=== PATIENT | female | born 1980 | race Caucasian/White ===

== ENCOUNTER 2016-09-09 19:43 | Emergency (ER) | payer SELFPAY ==
[2016-09-09 19:56] VITALS: BP 127/62
[2016-09-09] MEDS ORDERED: Ondansetron INJ* 2 MG/ML VIAL IV ONE (21:33)
[2016-09-09] MEDS ORDERED: NS 0.9% 1000 ML* 1,000 ML IV ONE (21:33)
[2016-09-09 22:00] LABS: Hematocrit 45 % (35-47); Hemoglobin 14.9 g/dl (12.0-16.0); Mean Corpuscular HGB Conc 34 g/dl (31-36); Mean Corpuscular Hemoglobin 32 pg (27-31); Mean Corpuscular Volume 95 fL (80-97); Mean Platelet Volume 7 um3 (7.4-10.4); Red Blood Count 4.72 10^6/ul (4.0-5.4); Red Cell Distribution Width 13 % (10.5-15); White Blood Count 10.3 10^3/ul (3.5-10.8)
--- NOTE | 2016-09-09 22:07 | ED ---
Mike Maldonado Billy, scribed for Stevie Patel MD on 09/09/16 at 2137 . Abdominal Pain/Female - HPI Summary HPI Summary: Patient is a 35 y/o female coming to [facility] for evaluation of 4 days of constipation. She states she has taken laxatives without relief. She also reports nausea, vomiting, decreased appetite, and lower abdominal pain. Pain severity 8/10. Fever TMax 101F. She also reports lower back pain. She denies any prior episodes of constipation. - History of Current Complaint Chief Complaint: EDAbdPain Stated Complaint: FEVER/VOMITING Time Seen by Provider: 09/09/16 21:29 Hx Obtained From: Patient Hx Last Menstrual Period: 12/15/15 Onset/Duration: Gradual Onset, Lasting Days, Still Present Timing: Constant Severity Initially: Moderate Severity Currently: Moderate Pain Intensity: 8 Pain Scale Used: 0-10 Numeric Location: Discrete At: RLQ, Discrete At: LLQ Radiates: No Aggravating Factor(s): Nothing Alleviating Factor(s): Nothing Associated Signs and Symptoms: Positive: Fever, Back Pain, Constipation, Nausea , Vomiting, Other: - decreased appetite Allergies/Adverse Reactions: Allergies Allergy/AdvReac Type Severity Reaction Status Date / Time No Known Allergies Allergy Verified 09/09/16 19:53 PMH/Surg Hx/FS Hx/Imm Hx Endocrine/Hematology History: Reports: Hx Anticoagulant Therapy Denies: Hx Diabetes, Hx Thyroid Disease Cardiovascular History: Denies: Hx Congestive Heart Failure, Hx Deep Vein Thrombosis, Hx Hypertension , Hx Myocardial Infarction, Hx Pacemaker/ICD Respiratory History: Denies: Hx Asthma, Hx Chronic Obstructive Pulmonary Disease (COPD), Hx Lung Cancer, Hx Pneumonia, Hx Pulmonary Embolism GI History: Denies: Hx Gall Bladder Disease, Hx Gastrointestinal Bleed, Hx Ulcer, Hx Urosepsis History: Denies: Hx Kidney Stones, Hx Renal Disease Neurological History: Reports: Hx Migraine - Her treatment is mostly "sleep." Denies: Hx Dementia, Hx Seizures, Hx Transient Ischemic Attacks (TIA) Psychiatric History: Reports: Hx Anxiety, Hx Depression - By her report, but is on no medications. Denies: Hx Schizophrenia, Hx Bipolar Disorder - Surgical History Surgery Procedure, Year, and Place: hiatil hernia 2011. fibro duct gland removed from throat 2006 Infectious Disease History: No Infectious Disease History: Denies: Traveled Outside the [place] in Last 30 Days - Family History Known Family History: Positive: Cardiac Disease, Hypertension - Social History Alcohol Use: Rare Substance Use Type: Reports: None Smoking Status (MU): Never Smoked Tobacco Amount Used/How Often: 1/2 ppd. Review of Systems Positive: Fever Positive: Abdominal Pain, Vomiting, Nausea, Other - constipation, decreased appetite Positive: Other - lower back pain All Other Systems Reviewed And Are Negative: Yes Physical Exam Triage Information Reviewed: Yes Vital Signs On Initial Exam: Initial Vitals Temp Pulse Resp BP Pulse Ox 97.6 F 66 18 127/62 98 09/09/16 19:52 09/09/16 19:52 09/09/16 19:52 09/09/16 19:52 09/09/16 19:52 Vital Signs Reviewed: Yes Appearance: Positive: Well-Appearing, No Pain Distress Skin: Positive: Warm Head/Face: Positive: Normal Head/Face Inspection Eyes: Positive: MARTINA ENT: Positive: Hearing grossly normal Neck: Positive: Supple Respiratory/Lung Sounds: Positive: Clear to Auscultation, Breath Sounds Present Cardiovascular: Positive: RRR Abdomen Description: Positive: Nontender, No Organomegaly, Soft Bowel Sounds: Positive: Present Musculoskeletal: Positive: Strength/ROM Intact Neurological: Positive: Alert, Oriented to Person Place, Time Psychiatric: Positive: Affect/Mood Appropriate Diagnostics - Vital Signs Vital Signs Temp Pulse Resp BP Pulse Ox 09/09/16 19:52 97.6 F 66 18 127/62 98 - Laboratory Lab Results: Lab Results 09/09/16 Range/Units 21:54 WBC 10.3 (3.5-10.8) 10^3/ul RBC 4.72 (4.0-5.4) 10^6/ul Hgb 14.9 (12.0-16.0) g/dl Hct 45 (35-47) % MCV 95 (80-97) fL MCH 32 H (27-31) pg MCHC 34 (31-36) g/dl RDW 13 (10.5-15) % Plt Count 236 (150-450) 10^3/ul MPV 7 L (7.4-10.4) um3 Neut % (Auto) 58.3 (38-83) % Lymph % (Auto) 31.4 (25-47) % [place] % (Auto) 7.3 (1-9) % Eos % (Auto) 2.6 (0-6) % Baso % (Auto) 0.4 (0-2) % Absolute Neuts (auto) 6.0 (1.5-7.7) 10^3/ul Absolute Lymphs (auto) 3.2 (1.0-4.8) 10^3/ul Absolute Monos (auto) 0.7 (0-0.8) 10^3/ul Absolute Eos (auto) 0.3 (0-0.6) 10^3/ul Absolute Basos (auto) 0 (0-0.2) 10^3/ul Absolute Nucleated RBC 0.01 10^3/ul Nucleated RBC % 0.1 Result Diagrams: 09/09/16 21:54 09/09/16 21:54 Lab Statement: Any lab studies that have been ordered have been reviewed, and results considered in the medical decision making process. - Radiology abd xray Radiology Interpretation Completed By: Radiologist - Moderate stool in the colon. No evidence for bowel obstruction. Re-Evaluation - Re-Evaluation First Eval Change: Improved Abdominal Pain Fem Course/Dx - Diagnoses Provider Diagnoses: Constipation Discharge - Discharge Plan Condition: Stable Disposition: HOME Patient Education Materials: Constipation (ED) Referrals: Sebastien Alonso MD [Primary Care Provider] - The documentation as recorded by the Mike lozada Billy accurately reflects the service I personally performed and the decisions made by , Stevie Patel MD.
[2016-09-09 22:16] LABS: ALT 12 U/L (7-52); AST 13 U/L (13-39); Albumin 4.1 g/dL (3.2-5.2); Alkaline Phosphatase 43 U/L (34-104); Anion Gap 6 mmol/L (2-11); BUN/Creatinine Ratio 14.1 (8-20); Blood Urea Nitrogen 10 mg/dL (6-24); CO2 Carbon Dioxide 26 mmol/L (22-32); Calcium 9.2 mg/dL (8.6-10.3); Chloride 105 mmol/L (101-111); EGFR African American 119.1 (>60); EGFR Non-African American 92.6 (>60); Globulin 2.9 g/dL (2-4); Glucose 95 mg/dL (70-100); Lipase 13 U/L (11.0-82.0); Magnesium 1.9 mg/dL (1.9-2.7); Potassium 3.6 mmol/L (3.5-5.0); Sodium 137 mmol/L (133-145)
--- NOTE | 2016-09-09 22:48 | RAD ---
Indication: No bowel movement for 4 days. Abdominal and back pain. Comparison: None. Technique: Supine abdomen. Report: Moderate stool throughout the colon with the largest volume at the RIGHT colon. Negative for visualized rectal distention with stool. No dilated small bowel loops evident. No suspicious calcifications or mass effect. Contraceptive coils noted at the pelvis. Unremarkable soft tissue contours accounting for body habitus. IMPRESSION: Moderate stool in the colon. No evidence for bowel obstruction.
[2016-09-09] MEDS ORDERED: Magnesium CITRATE* 300 ML BTL PO ONE (23:04)
== END 2016-09-09 23:37 | disposition home or self-care (01) ==
LOC: ED 19:43
DX: K59.00 Constipation, unspecified (principal); M54.5 Low back pain; R50.9 Fever, unspecified; R11.2 Nausea with vomiting, unspecified; R10.84 Generalized abdominal pain
CPT/HCPCS: 36415; 74000; 80053; 83690; 83735; 84702; 85025; 96374; 99282; A9270-GY; J2405

== ENCOUNTER 2017-10-10 11:06 | Emergency (ER) | payer SELFPAY ==
[2017-10-10 11:38] LABS: ABS Basophils 0.1 10^3/ul (0-0.2); ABS Eosinophils 0.1 10^3/ul (0-0.6); ABS Lymphocytes 1.9 10^3/ul (1.0-4.8); ABS Monocytes 0.6 10^3/ul (0-0.8); ABS Neutrophils 5.9 10^3/ul (1.5-7.7); ABS Nucleated RBC 0 10^3/ul; Eosinophil % 0.7 % (0-6); Hematocrit 43 % (35-47); Hemoglobin 14.8 g/dl (12.0-16.0); Lymphocyte % 22.1 % (25-47); Mean Corpuscular HGB Conc 34 g/dl (31-36); Mean Corpuscular Hemoglobin 32 pg (27-31); Mean Corpuscular Volume 95 fL (80-97); Mean Platelet Volume 7.2 um3 (7.4-10.4); Nucleated Red Blood Cells % 0; Platelet Count 253 10^3/ul (150-450); Red Blood Count 4.59 10^6/ul (4.0-5.4); Red Cell Distribution Width 13 % (10.5-15); White Blood Count 8.4 10^3/ul (3.5-10.8)
[2017-10-10 11:53] LABS: EGFR Non-African American 86.5 (>60)
[2017-10-10] MEDS ORDERED: Nitroglycerin TAB 0.4 MG* 0.4 MG TAB SL ONE (12:00)
[2017-10-10] MEDS ORDERED: Aspirin TAB* 325 MG PO ONE (12:00)
--- NOTE | 2017-10-10 12:14 | RAD ---
INDICATION: Chest pain with radiation down the left arm COMPARISON: Chest x-ray dated January 01, 2016 TECHNIQUE: Single AP portable view of the chest was obtained. FINDINGS: Image quality is compromised due to the relative inferiority of a portable chest x-ray. The heart and mediastinum exhibit normal size and contour. The lungs are grossly clear. There is no evidence of a large pleural effusion. Visualized bones are normal for the patient's age. IMPRESSION: No radiographic evidence for acute cardiopulmonary abnormality on this portable chest x-ray.
[2017-10-10] MEDS ORDERED: Aspirin 81 mg CHEW TAB* 81 MG TAB.CHEW ONE (12:36)
[2017-10-10] MEDS ORDERED: Aspirin 81 mg CHEW TAB* 81 MG TAB.CHEW PO ONE (12:39)
[2017-10-10] MEDS ORDERED: Acetaminophen TAB* 325 MG PO ONE (13:49)
[2017-10-10] MEDS ORDERED: Acetaminophen TAB* 325 MG ONE (13:50)
[2017-10-10 16:17] VITALS: BP 108/73
--- NOTE | 2017-10-12 13:49 | ED ---
I, Alaina Ford, scribed for Aniket Casey MD on 10/10/17 at 1423 . Progress - EKG/XRAY/CT EKG: rhythm - Taken at 16:05, 61 BPM, ventricular premature complex, No-STEMI, PVC Re-Evaluation - Re-Evaluation First Eval Re-Evaluation Time: 16:11 Change: Unchanged - ED physician discussed results with the pt and her . Course/Dx - Course Course Of Treatment: At 15:36, ED physician spoke to Dr. Aleisha Wade at [facility]. They state the pt can follow up with them within the next week. They ordered cardiology follow-up that has not happened yet. Office staff will follow up on this. No HI. ED physician facilitated close follow-up care. ED physician suggests for the pt to call PCP tomorrow morning for appointment tomorrow. - Diagnoses Provider Diagnoses: Chest pain, unspecified Discharge - Sign-Out/Discharge Documenting (check all that apply): Discharge/Admit/Transfer - discharge - Discharge Plan Condition: Stable Disposition: HOME Patient Education Materials: Chest Pain (ED) Referrals: Sebastien Alonso MD [Primary Care Provider] - 1 Week Additional Instructions: RETURN TO THE EMERGENCY DEPARTMENT FOR CHANGING OR WORSENING SYMPTOMS. The documentation as recorded by the Logan lozada Stephanie accurately reflects the service I personally performed and the decisions made by , Aniket Casey MD.
--- NOTE | 2017-10-12 13:50 | ED ---
Damari Maldonado Julia, scribed for Aniket Casey MD on 10/10/17 at 1153 . HPI Chest Pain - HPI Summary HPI Summary: This patient is a 36 year old F presenting to [facility] with a chief complaint of constant sudden onset left anterior chest pain that radiates to the left arm since last night while working. Patient reports SOB, nausea, and headache. The patient rates the pain 4/10 in severity. CP aggravated by deep breaths. Patient has had similar symptoms before that have not lasted as long. She reports a treadmill stress test in [place] in January of 2017. She states her PCP at [facility] recommended a nuclear stress test but she has not heard anything from them about when they would like to schedule. PMHx of HTN. SHx of smoking. FMHx of [place] in father, first at age 36; four in total. Pt takes 81mg of ASA daily. She has not taken any today since she takes it in the evening. - History of Current Complaint Chief Complaint: EDChestPainROMI Time Seen by Provider: 10/10/17 11:16 Hx Obtained From: Patient Hx Last Menstrual Period: 12/15/15 Onset/Duration: Started Hours Ago Timing: Constant Pain Intensity: 4 Pain Scale Used: 0-10 Numeric Chest Pain Location: Left Anterior Chest Pain Radiates: Yes Chest Pain Radiates To:: Arm - left Aggravating Factor(s): Deep Breaths Alleviating Factor(s): Nothing Associated Signs and Symptoms: Positive: Chest Pain, Headaches, Shortness of Breath Related History: Similar Episode/Dx as: - chest pain - Allergy/Home Medications Allergies/Adverse Reactions: Allergies Allergy/AdvReac Type Severity Reaction Status Date / Time No Known Allergies Allergy Verified 10/10/17 11:15 Home Medications: Home Medications Aspirin EC TAB* [Ecotrin EC Low Dose 81 MG*] 81 mg PO DAILY 10/10/17 [History Confirmed 10/10/17] Metoprolol Tartrate TAB* [Lopressor TAB*] 12.5 mg PO BID 10/10/17 [History Confirmed 10/10/17] PMH/Surg Hx/FS Hx/Imm Hx Endocrine/Hematology History: Reports: Hx Anticoagulant Therapy Denies: Hx Diabetes, Hx Thyroid Disease Cardiovascular History: Reports: Hx Hypertension Denies: Hx Congestive Heart Failure, Hx Deep Vein Thrombosis, Hx Myocardial Infarction, Hx Pacemaker/ICD Respiratory History: Denies: Hx Asthma, Hx Chronic Obstructive Pulmonary Disease (COPD), Hx Lung Cancer, Hx Pneumonia, Hx Pulmonary Embolism GI History: Denies: Hx Gall Bladder Disease, Hx Gastrointestinal Bleed, Hx Ulcer, Hx Urosepsis History: Denies: Hx Kidney Stones, Hx Renal Disease Neurological History: Reports: Hx Migraine - Her treatment is mostly "sleep." Denies: Hx Dementia, Hx Seizures, Hx Transient Ischemic Attacks (TIA) Psychiatric History: Reports: Hx Anxiety, Hx Depression - By her report, but is on no medications. Denies: Hx Schizophrenia, Hx Bipolar Disorder - Surgical History Surgery Procedure, Year, and Place: hiatil hernia 2011. fibro duct gland removed from throat 2006 Infectious Disease History: No Infectious Disease History: Denies: Traveled Outside the [place] in Last 30 Days - Family History Known Family History: Positive: Cardiac Disease - father [place] age 38, Hypertension - Social History Occupation: Employed Full-time - less stressful than previous occupation Alcohol Use: Rare Substance Use Type: Reports: None Smoking Status (MU): Current Every Day Smoker Amount Used/How Often: 1/2 ppd. Review of Systems Negative: Fever, Chills Negative: Erythema Negative: Sore Throat Positive: Chest Pain Positive: Shortness Of Breath. Negative: Cough Positive: Nausea. Negative: Abdominal Pain, Vomiting Negative: dysuria, hematuria Negative: Myalgia, Edema Negative: Rash Neurological: Negative - dizzy Positive: Headache All Other Systems Reviewed And Are Negative: Yes Physical Exam - Summary Physical Exam Summary: Constitutional: Well-developed, Well-nourished, Alert. (-) Distressed Skin: Warm, Dry HENT: Normocephalic; Atraumatic Eyes: Conjunctiva normal Neck: Musculoskeletal ROM normal neck. (-) JVD, (-) Stridor, (-) Tracheal deviation Cardio: Rhythm regular, rate normal, Heart sounds normal; Intact distal pulses; The pedal pulses are 2+ and symmetric. Radial pulses are 2+ and symmetric. (-) Murmur Pulmonary/Chest wall: Effort normal. (-) Respiratory distress, (-) Wheezes, (-) Rales Abd: Soft, (-) Tenderness, (-) Distension, (-) Guarding, (-) Rebound Musculoskeletal: (-) Edema Lymph: (-) Cervical adenopathy Neuro: Alert, Oriented x3 Psych: Mood and affect Normal Triage Information Reviewed: Yes Vital Signs On Initial Exam: Initial Vitals Temp Pulse Resp BP Pulse Ox 99.1 F 104 18 123/65 100 10/10/17 11:21 10/10/17 11:21 10/10/17 11:21 10/10/17 11:21 10/10/17 11:21 Vital Signs Reviewed: Yes Diagnostics - Vital Signs Vital Signs Temp Pulse Resp BP Pulse Ox 10/10/17 11:21 99.1 F 104 18 123/65 100 - Laboratory Lab Results: Lab Results 10/10/17 10/10/17 10/10/17 Range/Units 11:19 11:19 11:19 WBC 8.4 (3.5-10.8) 10^3/ul RBC 4.59 (4.0-5.4) 10^6/ul Hgb 14.8 (12.0-16.0) g/dl Hct 43 (35-47) % MCV 95 (80-97) fL MCH 32 H (27-31) pg MCHC 34 (31-36) g/dl RDW 13 (10.5-15) % Plt Count 253 (150-450) 10^3/ul MPV 7.2 L (7.4-10.4) um3 Neut % (Auto) 69.9 (38-83) % Lymph % (Auto) 22.1 L (25-47) % [place] % (Auto) 6.7 (0-7) % Eos % (Auto) 0.7 (0-6) % Baso % (Auto) 0.6 (0-2) % Absolute Neuts (auto) 5.9 (1.5-7.7) 10^3/ul Absolute Lymphs (auto) 1.9 (1.0-4.8) 10^3/ul Absolute Monos (auto) 0.6 (0-0.8) 10^3/ul Absolute Eos (auto) 0.1 (0-0.6) 10^3/ul Absolute Basos (auto) 0.1 (0-0.2) 10^3/ul Absolute Nucleated RBC 0 10^3/ul Nucleated RBC % 0 Sodium 138 L (139-145) mmol/L Potassium 3.7 (3.5-5.0) mmol/L Chloride 105 (101-111) mmol/L Carbon Dioxide 26 (22-32) mmol/L Anion Gap 7 (2-11) mmol/L BUN 8 (6-24) mg/dL Creatinine 0.75 (0.51-0.95) mg/dL Est GFR ( Amer) 111.2 (>60) Est GFR (Non-Af Amer) 86.5 (>60) BUN/Creatinine Ratio 10.7 (8-20) Glucose 125 H (70-100) mg/dL Lactic Acid 1.1 (0.5-2.0) mmol/L Calcium 9.2 (8.6-10.3) mg/dL Total Bilirubin 0.50 (0.2-1.0) mg/dL AST 13 (13-39) U/L ALT 9 (7-52) U/L Alkaline Phosphatase 39 (34-104) U/L Troponin I Pending Total Protein 7.1 (6.4-8.9) g/dL Albumin 4.2 (3.2-5.2) g/dL Globulin 2.9 (2-4) g/dL Albumin/Globulin Ratio 1.4 (1-3) Result Diagrams: 10/10/17 11:19 10/10/17 11:19 Lab Statement: Any lab studies that have been ordered have been reviewed, and results considered in the medical decision making process. - Radiology CXR Radiology Interpretation Completed By: Radiologist - No radiographic evidence for acute cardiopulmonary abnormality on this portable chest x-ray. ED Physician has reviewed this report. - EKG 1103 Cardiac Rate: NL - at 99 BPM EKG Rhythm: Sinus Rhythm EKG Interpretation: no STEMI Re-Evaluation - Re-Evaluation 1 Re-Evaluation Time: 13:55 Change: Improved - CP is resolved with Nitro First Eval Re-Evaluation Time: 16:11 Change: Unchanged - ED physician discussed results with the pt and her . Chest Pain Course/Dx - Diagnoses Provider Diagnoses: Chest pain, unspecified Discharge - Sign-Out/Discharge Documenting (check all that apply): Discharge/Admit/Transfer - Discharge Plan Condition: Stable Disposition: HOME Patient Education Materials: Chest Pain (ED) Referrals: Sebastien Alonso MD [Primary Care Provider] - 1 Day Additional Instructions: RETURN TO THE EMERGENCY DEPARTMENT FOR CHANGING OR WORSENING SYMPTOMS. - Billing Disposition and Condition Condition: STABLE Disposition: HOME The documentation as recorded by the Damari lozada Julia accurately reflects the service I personally performed and the decisions made by me, Ainket Casey MD.
== END 2017-10-10 16:36 | disposition home or self-care (01) ==
LOC: ED 11:06
DX: R07.9 Chest pain, unspecified (principal)
CPT/HCPCS: 36415; 71045; 80053; 83605; 84484; 85025; 93005; 99283; A9270-GY

== ENCOUNTER 2018-01-09 15:03 | Emergency (ER) | payer OTHER ==
[2018-01-09 15:12] VITALS: BP 124/72
== END 2018-01-09 18:16 | disposition left against medical advice (07) ==
LOC: ED 15:03
DX: R42 Dizziness and giddiness (principal); Z53.21 Procedure and treatment not carried out due to patient leaving prior to being seen by health care provider

== ENCOUNTER 2018-01-10 07:19 | Emergency (ER) | payer OTHER ==
--- NOTE | 2018-01-10 07:43 | ED ---
Headache - HPI Summary HPI Summary: This is Usha lozada, documenting for attending, Aniket Casey MD. This patient is a 37 year old F presenting to [facility] with a chief complaint of parietal headache with nausea, dizziness, and vomiting for the past three months , worsening the past three days. She states the headache has been constant for the past three days. Headache is 6/10 in severity. Headache aggravated by bright lights. Symptoms unchanged by Ibuprofen. She has no formal diagnosis of migraines, but states she has had migraines since a child. LNMP began three days ago and has ended today. Denies sinus pain/congestion, chest pain, and SOB. She states she has had work-ups done with her primary care physician, who sent her to a turn supervisor, Dr. Hou, who sent her here for a Brain CT. She is currently taking medications for nausea and heart burn, as prescribed by Dr. Hou. Denies over the counter medication use. - History Of Current Complaint Chief Complaint: EDHeadache Stated Complaint: DIZZINESS/NAUSEA Hx Obtained From: Patient Hx Last Menstrual Period: 12/15/15 Onset/Duration: Started weeks ago, Worse Since - past three days Currently Pain Is: Current Pain Scale(0-10)= - 6 Timing: Constant Location of Headache: Parietal Aggravating Factor: Bright Lights Allevating Factors: Nothing Associated Signs And Symptoms: Dizziness, Nausea, Vomiting - Allergies/Home Medications Allergies/Adverse Reactions: Allergies Allergy/AdvReac Type Severity Reaction Status Date / Time No Known Allergies Allergy Verified 01/10/18 07:28 PMH/Surg Hx/FS Hx/Imm Hx Endocrine/Hematology History: Reports: Hx Anticoagulant Therapy Denies: Hx Diabetes, Hx Thyroid Disease Cardiovascular History: Reports: Hx Hypertension Denies: Hx Congestive Heart Failure, Hx Deep Vein Thrombosis, Hx Myocardial Infarction, Hx Pacemaker/ICD Respiratory History: Denies: Hx Asthma, Hx Chronic Obstructive Pulmonary Disease (COPD), Hx Lung Cancer, Hx Pneumonia, Hx Pulmonary Embolism GI History: Denies: Hx Gall Bladder Disease, Hx Gastrointestinal Bleed, Hx Ulcer, Hx Urosepsis History: Denies: Hx Kidney Stones, Hx Renal Disease Neurological History: Reports: Hx Migraine - Her treatment is mostly "sleep." Not formally diagnosed. Denies: Hx Dementia, Hx Seizures, Hx Transient Ischemic Attacks (TIA) Psychiatric History: Reports: Hx Anxiety, Hx Depression - By her report, but is on no medications. Denies: Hx Schizophrenia, Hx Bipolar Disorder - Surgical History Surgery Procedure, Year, and Place: hiatil hernia 2011. fibro duct gland removed from throat 2006 Infectious Disease History: No Infectious Disease History: Denies: Traveled Outside the [place] in Last 30 Days - Family History Known Family History: Positive: Cardiac Disease - father [place] age 38, Hypertension - Social History Alcohol Use: Rare Substance Use Type: Reports: None Smoking Status (MU): Current Every Day Smoker Amount Used/How Often: 1/2 ppd. Review of Systems Negative: Fever, Chills Positive: Photophobia. Negative: Erythema ENT: Negative - sinus pain/congestion Negative: Sore Throat Negative: Chest Pain Negative: Shortness Of Breath, Cough Positive: Vomiting, Nausea. Negative: Abdominal Pain Negative: dysuria, hematuria Negative: Myalgia, Edema Neurological: Other - dizziness Positive: Headache All Other Systems Reviewed And Are Negative: Yes Physical Exam - Summary Physical Exam Summary: Constitutional: Well-developed, Well-nourished, Alert. (-) Distressed Skin: Warm, Dry HENT: Normocephalic; Atraumatic Eyes: Conjunctiva normal Neck: Musculoskeletal ROM normal neck. (-) JVD, (-) Stridor, (-) Tracheal deviation Cardio: Rhythm regular, rate normal, Heart sounds normal; Intact distal pulses; The pedal pulses are 2+ and symmetric. Radial pulses are 2+ and symmetric. (-) Murmur Pulmonary/Chest wall: Effort normal. (-) Respiratory distress, (-) Wheezes, (-) Rales Abd: Soft. (-) Tenderness, (-) Distension, (-) Guarding, (-) Rebound Musculoskeletal: (-) Edema Lymph: (-) Cervical adenopathy Neuro: Alert, Oriented x3, Strength normal, Cranial nerves II-XII are grossly intact. (-) Dysmetria, (-) Nystagmus, (-) Ataxia by finger to nose testing, (-) Sensory deficit. GCS: 15. Psych: Mood and affect Normal Triage Information Reviewed: Yes Vital Signs On Initial Exam: Initial Vitals Temp Pulse Resp BP Pulse Ox 98.2 F 74 18 127/80 100 01/10/18 07:23 01/10/18 07:23 01/10/18 07:23 01/10/18 07:23 01/10/18 07:23 Vital Signs Reviewed: Yes Diagnostics - Vital Signs Vital Signs Temp Pulse Resp BP Pulse Ox 01/10/18 07:23 98.2 F 74 18 127/80 100 - Laboratory Result Diagrams: 01/10/18 07:56 01/10/18 07:56 Lab Statement: Any lab studies that have been ordered have been reviewed, and results considered in the medical decision making process. - CT Brain CT Interpretation Completed By: Radiologist - NEGATIVE EXAMINATION. ED Physician has reviewed this report. Headache Course/Dx - Course Course Of Treatment: 37 year old F presenting to [facility] with a chief complaint of parietal headache with nausea, dizziness, and vomiting for the past three months, worsening the past three days. She states the headache has been constant for the past three days. Headache aggravated by bright lights. She has no formal diagnosis of migraines, but states she has had migraines since a child. LNMP began three days ago and has ended today. Was sent ED by her GI physician for a Brain CT. CT reveals, "NEGATIVE EXAMINATION", as per radiologist. Patient is given Reglan, Toradol, Benadryl, and IV fluids. While in ED, patients pain and symptoms have improved. Patient was discharged prior to discussion of results and discharge instructions. Patient was called and instructed to call back for further discussion of results and instructions. - Diagnoses Provider Diagnoses: Migraine, Dizziness Discharge - Sign-Out/Discharge Documenting (check all that apply): Patient Departure - Discharge Plan Condition: Stable Disposition: HOME Prescriptions: Ketorolac TAB * [Toradol TAB *] 10 mg PO Q6H PRN #12 tab PRN Reason: Pain - Moderate To Severe Metoclopramide TAB* [Reglan TAB*] 10 mg PO Q8H PRN #12 tab PRN Reason: Pain Scale 6-10 Patient Education Materials: Migraine Headache (ED), Dizziness (ED) Referrals: Sebastien Alonso MD [Primary Care Provider] - 2 Days Additional Instructions: RETURN TO THE EMERGENCY DEPARTMENT FOR CHANGING OR WORSENING SYMPTOMS.
[2018-01-10] MEDS ORDERED: Ketorolac INJ* 30 MG/ML 1 ML VIAL IV PUSH ONE (07:49)
[2018-01-10] MEDS ORDERED: diPHENhydraMINE IV* 50 MG/ML 1 ml VIAL (BENADRYL) SLOW PUSH ONE (07:49)
[2018-01-10] MEDS ORDERED: NS 0.9% 1000 ML* 2,000 ML IV ONE (07:49)
[2018-01-10] MEDS ORDERED: Metoclopramide IV* 5 MG/ML 2 ML VIAL IV SLOW PU ONE (07:49)
--- NOTE | 2018-01-10 08:24 | RAD ---
INDICATION: Headaches. Dizziness COMPARISON: None TECHNIQUE: Noncontrast axial source images were acquired from the skull base to the vertex. FINDINGS: Ventricles/sulci: The ventricles and cisterns are normal in size and configuration for age. Brain parenchyma: There is no focal parenchymal finding, evidence of intracranial mass, or intracranial mass effect. Intracranial hemorrhage:None. Extra-axial spaces: There are no abnormal extra axial fluid collections or evidence of extra-axial mass. Calvarium: There is no calvarial fracture or other calvarial abnormality. Scalp: There is no evidence of scalp or extracalvarial soft tissue abnormality. Paranasal sinuses/mastoid: The paranasal sinuses and mastoid air cells are clear. Other: None. IMPRESSION: NEGATIVE EXAMINATION
[2018-01-10 08:27] LABS: EGFR Non-African American 87.4 (>60)
[2018-01-10 08:38] LABS: Hematocrit 43 % (35-47); Hemoglobin 14.5 g/dl (12.0-16.0); Mean Corpuscular HGB Conc 34 g/dl (31-36); Mean Corpuscular Hemoglobin 33 pg (27-31); Mean Corpuscular Volume 96 fL (80-97); Mean Platelet Volume 7.3 um3 (7.4-10.4); Platelet Count 235 10^3/ul (150-450); Red Blood Count 4.45 10^6/ul (4.00-5.40); Red Cell Distribution Width 13 % (10.5-15); White Blood Count 7.1 10^3/ul (3.5-10.8)
[2018-01-10 11:48] VITALS: BP 115/59
== END 2018-01-10 11:49 | disposition home or self-care (01) ==
LOC: ED 07:19
DX: G43.909 Migraine, unspecified, not intractable, without status migrainosus (principal); R42 Dizziness and giddiness; Z82.49 Family history of ischemic heart disease and other diseases of the circulatory system; Z79.01 Long term (current) use of anticoagulants; I10 Essential (primary) hypertension; F17.200 Nicotine dependence, unspecified, uncomplicated
CPT/HCPCS: 36415; 70450; 80053; 83735; 84702; 85027; 96361; 96374; 96375; 99283; J1200; J1885; J2765